=== PATIENT | female | born 1980 | race Caucasian/White ===

== ENCOUNTER 2018-03-09 06:05 | Inpatient (IN) | payer BC ==
[~2018-03-09 06:05] MED LIST: BICITRA 30 ML CUP PO SCH; CEFAZOLIN 2 GM-D5W BAG** 2 GM/50 ML ML IV SCH; Lactated Ringers 1,000 ML IV ONE; Lactated Ringers 1,000 ML IV SCH; Pepcid 20 MG VIAL IV SCH; Reglan 10 MG/2 ML IV SCH
[2018-03-09 07:59] LABS: Hematocrit 37.5 % (35-47); Hemoglobin 12.7 gm/dl (12.0-16.0); Mean Cell Volume 89.3 fl (78-100); Mean Corpuscular Hemoglobin 30.2 pg (26-32); Mean Corpuscular Hgb Concent. 33.9 g/dl (32-36); Mean Platelet Volume 10.6 fl (6-9.5); Platelet Count 197 K/mm3 (150-450); Red Cell Distribution Width 15.1 % (11.5-14.0); White Blood Count 9.9 K/mm3 (4.0-10.5)
[2018-03-09] MEDS ORDERED: Lactated Ringers 1,000 ML IV ONE (08:13)
[2018-03-09 08:24] LABS: INR 0.92 (0.8-3.0)
[2018-03-09 08:27] LABS: PTT 24.1 SECONDS (25.3-37.0)
[2018-03-09 08:55] LABS: ABO TYPING A; Antibody Screen NEGATIVE (NEGATIVE); RH TYPING NEGATIVE
[2018-03-09] MEDS ORDERED: TYLENOL EXTRA STRENGTH 500 MG PO PRN (09:00)
[2018-03-09] MEDS ORDERED: Mylicon 80MG PO PRN (09:00)
[2018-03-09] MEDS ORDERED: TUCKS TP PRN (09:00)
[2018-03-09] MEDS ORDERED: HOLD NARCOTIC ANALGESICS AND SEDATIVES X24 HR MC PRN (09:00)
[2018-03-09] MEDS ORDERED: CORTISONE 1% CREAM TP PRN (09:00)
[2018-03-09] MEDS ORDERED: LANSINOH 40 GM TOP PRN (09:00)
[2018-03-09] MEDS ORDERED: MORPHINE SULFATE 2 MG INJ IV PRN (09:00)
[2018-03-09] MEDS ORDERED: DEMEROL 50 MG IV PRN (09:00)
[2018-03-09] MEDS ORDERED: CLARITIN 10 MG PO PRN (09:00)
[2018-03-09] MEDS ORDERED: Dermoplast Spray TP PRN (09:00)
[2018-03-09] MEDS ORDERED: Narcan 0.4 MG/ML IV PRN (09:00)
[2018-03-09] MEDS ORDERED: Anucort-HC SUPPOSITORY PR PRN (09:00)
[2018-03-09] MEDS ORDERED: Zofran 4 MG/2 ML VIAL IV PRN (09:00)
[2018-03-09] MEDS ORDERED: BENADRYL 50 MG/ML IV PRN (09:00)
[2018-03-09] MEDS ORDERED: Dulcolax 10 MG SUPP PR PRN (09:00)
[2018-03-09] MEDS ORDERED: Nubain 10 MG/ML IV PRN (09:00)
[2018-03-09 09:54] LABS: Appearance CLEAR (CLEAR); Bilirubin NEGATIVE (NEGATIVE); Blood NEGATIVE Ery/ul (0-5); Glucose NEGATIVE (NEGATIVE); Ketones NEGATIVE (NEGATIVE); Leukocyte Esterase NEGATIVE (NEGATIVE); Nitrite NEGATIVE (NEGATIVE); Protein,Urine Dip NEGATIVE (Negative); Specific Gravity 1.015 (1.005-1.025); Urobilinogen NORMAL mg/dL (0-1)
[2018-03-09 10:03] LABS: Amphetamine,Urine NEGATIVE (NEGATIVE); Barbiturate,Urine NEGATIVE (NEGATIVE); Benzodiazepine,Urine NEGATIVE (NEGATIVE); Cocaine,Urine NEGATIVE (NEGATIVE); Methadone,Urine NEGATIVE (NEGATIVE); Opiate,Urine POSITIVE (NEGATIVE); PCP,Urine NEGATIVE (NEGATIVE); THC,Urine NEGATIVE (NEGATIVE)
[2018-03-09] MEDS ORDERED: Adacel Vial IM ONE (12:00)
--- NOTE | 2018-03-09 14:42 | OP ---
SURGERY DATE/TIME: 03/09/2018 0831 PREOPERATIVE DIAGNOSES: 1) Term intrauterine . 2) History of prior section. POSTOPERATIVE DIAGNOSES: 1) Term intrauterine . 2) History of prior section. PROCEDURE: Repeat section. SURGEON: Stephen Hunter M.D. ESTIMATED BLOOD LOSS: 400 cc. URINE OUTPUT: 100 cc of clear straw-colored urine. ANESTHESIA: Spinal by Shawn Vu CRNA. SPECIMENS: Placenta sent for pathology. DESCRIPTION OF PROCEDURE: After informed written consent was obtained, the patient was taken to the operating room. She underwent spinal anesthesia. She was prepped and draped in the usual sterile fashion. After adequate level of anesthesia was assessed, a low transverse skin incision was made by knife and carried down through the subcutaneous fat to the level of the fascia. The fascia was nicked on both sides of the midline and then extended in horizontal using curved Herrmann scissors. The superior free edge of the fascia was grasped with Darwin clamps and the underlying rectus muscles were dissected free. The same was repeated inferiorly. The peritoneal cavity was opened and extended in horizontal fashion. Bladder blade was then inserted and bladder flap was created over the lower uterine segment. A uterine incision was made in transverse fashion and carried down to the level of the amniotic membranes which were carefully artificially ruptured. A viable male delivered from the vertex presentation. Oropharynx and nares were suctioned free. The cord was clamped and cut and he was handed off to the awaiting nursery team. The placenta was removed from the uterine cavity and the uterus was exteriorized. The uterine cavity was sponge curetted clean with lap sponge and then the uterine incision was closed with #1 chromic in a running locked fashion. Good hemostasis and good closure were achieved. The posterior cul-de-sac was wiped free of blood and clot with moist lap sponge and then uterus was returned to the peritoneal cavity. Lateral gutters were wiped free of blood and clot with moist lap sponge. Again the uterine incision was inspected and noted to be hemostatic with adequate closure. Next, the fascia was closed with 0 Vicryl in a running fashion with good closure and good hemostasis were achieved. Subcutaneous fat was irrigated with warm, sterile saline and any areas of bleeding were cauterized with electrocautery. Finally the skin layer was closed with 4-0 undyed Vicryl in a running subcuticular fashion. Steri-Strips and occlusive dressing were placed over the incision. The patient was transferred to the recovery in excellent condition.
[2018-03-09] MEDS ORDERED: Marcaine Mpf 0.5% Vial 30 Ml IJ ONE (15:41)
[2018-03-09] MEDS ORDERED: TORAdol 30 mg Injection IV ONE (15:41)
[2018-03-09] MEDS ORDERED: Pitocin 10 UNITS/ML IV ONE (15:41)
[2018-03-09] MEDS ORDERED: PHENYLEPHRINE HCL IV ONE (15:41)
[2018-03-09] MEDS ORDERED: Astramorph-Pf 5 MG/10 ML IV ONE (15:41)
[2018-03-09] MEDS: MOTRIN 400 MG PO PRN (17:20)
[2018-03-09] MEDS: Colace 100 MG PO SCH (21:55)
[2018-03-10] MEDS: PERCOCET TABLET 5/325MG PO PRN ×2 (00:47→05:34)
[2018-03-10] MEDS: MOTRIN 400 MG PO PRN ×4 (00:48→20:01)
[2018-03-10 05:49] LABS: Hemoglobin 9.9 gm/dl (12.0-16.0); Mean Cell Volume 91.7 fl (78-100); Mean Platelet Volume 10.1 fl (6-9.5); Platelet Count 195 K/mm3 (150-450); Red Blood Count 3.27 M/mm3 (4.1-5.4); Red Cell Distribution Width 15.3 % (11.5-14.0); White Blood Count 10.3 K/mm3 (4.0-10.5)
[2018-03-10 05:55] LABS: Mean Corpuscular Hemoglobin 30.2 pg (26-32)
[2018-03-10] MEDS ORDERED: Ambien 10 MG PO PRN (09:00)
[2018-03-10] MEDS: Colace 100 MG PO SCH ×2 (09:41→22:14)
[2018-03-10] MEDS: FERREX 150 PO SCH (09:41)
[2018-03-10] MEDS: NORCO 5/325 MG PO PRN ×4 (11:08→23:35)
[2018-03-10 11:21] VITALS: O2SAT 96
[2018-03-11] MEDS: NORCO 5/325 MG PO PRN ×2 (03:49→08:05)
[2018-03-11] MEDS: MOTRIN 400 MG PO PRN (03:50)
[2018-03-11] MEDS: FERREX 150 PO SCH (08:04)
[2018-03-11] MEDS: Colace 100 MG PO SCH (08:05)
--- NOTE | 2018-03-11 09:01 | PCM.DS ---
Discharge Summary Date of Admission: 03/09/18 06:05 Admitting Physician: MATTHIEU HICKMAN Consults: Consults on Case 03/09/18 01:42 Notify Anesthesia Provider PRN 03/09/18 04:00 Notify Anesthesia Provider ROUTINE Notify Physician OF ADMISSION Primary Care Provider: MATTHIEU HICKMAN Allergies Allergies lorazepam [From Ativan] Allergy (Mild, Verified 03/15/14 06:15) feels "foggy" ciprofloxacin [From Ciprodex] Adverse Reaction (Verified 03/09/18 07:05) dexamethasone [From Ciprodex] Adverse Reaction (Verified 03/09/18 07:05) Sulfa (Sulfonamide Antibiotics) Adverse Reaction (Verified 03/09/18 07:05) Hospital Summary - Hospital Course Hospital Course: patient had repeat c/section on 03/09, no complications after delivery. mild lochia and pain controlled, tolerating po well. - Vitals & Intake/Output Vital Signs: Vital Signs Temperature 97.6 F 03/10/18 20:00 Pulse Rate 83 03/11/18 02:00 Respiratory Rate 18 03/11/18 02:00 Blood Pressure 134/71 03/11/18 02:00 O2 Sat by Pulse Oximetry 96 03/10/18 08:00 Intake & Output: Intake & Output 03/08/18 03/09/18 03/10/18 03/11/18 11:59 11:59 11:59 11:59 Intake Total 3263 800 Output Total 2750 Balance 513 800 Weight 103.419 kg - Lab Result Diagrams: 03/10/18 05:43 Micro Results-Entire Visit: Microbiology 03/09/18 08:45 Urine Culture - Preliminary Urine, Catheterized NO GROWTH TO DATE Discharge Exam General Appearance: no apparent distress, alert Skin Exam: normal color, warm, dry Respiratory Exam: normal breath sounds, lungs clear, No respiratory distress Cardiovascular Exam: regular rate/rhythm, normal heart sounds Gastrointestinal/Abdomen Exam: soft, other (incision c/d/i), No tenderness, No mass Extremity Exam: normal inspection, normal range of motion Final Diagnosis/Problem List - Final Discharge Diagnosis/Problem (1) delivery delivered Current Visit: Yes Status: Acute - Discharge Disposition: Home, Self-Care Condition: Stable Prescriptions: [place] Polysaccharides Complex [Ferrex 150] 150 mg PO DAILY #30 capsule Hydrocodone Bit/Acetaminophen [[place] 5-325 Tablet] 1 each PO Q6H PRN PRN #28 tablet MDD 4 PRN Reason: Pain Continue Vits W-Ca,Fe,FA(<1Mg) [] 1 each PO DAILY Follow up with: MATTHIEU HICKMAN MD [Primary Care Provider] - 1 Week
[2018-03-11 12:18] VITALS: BP 135/65; PULSE 81
== END 2018-03-11 10:30 | disposition home or self-care (01) | DRG 766 ==
LOC: OB 06:05
PROVIDERS: ADMIT Family Medicine; ATTEND Family Medicine
PROC: 10D00Z1 Extraction of Products of Conception, Low, Open Approach (ICD-10-PCS; principal; 2018-03-09)
DX: O34.211 Maternal care for low transverse scar from previous cesarean delivery (principal); Z3A.39 39 weeks gestation of pregnancy; Z37.0 Single live birth
CPT/HCPCS: 36415; 62322; 64488; 76937; 76942; 80307; 81002; 85027; 85610; 85730; 86850; 86900; 86901; 87086; 88307; 90471; 90715; 94799; J0690; J1885; J2274; J2370; J2590; L0625; A9270-GY